=== PATIENT | male | born 1960 | race Caucasian/White ===

== ENCOUNTER 2025-07-06 13:26 | Outpatient (REF) | payer MEDICARE, SELFPAY ==
--- NOTE | ~2025-07-06 | XR_ITS ---
EXAMINATION: XR HAND 3 OR MORE VIEWS RIGHT, XR FOREARM 2 VIEWS RIGHT HISTORY: M79.643 - Pain in unspecified hand COMPARISON: There are no prior studies available for comparison. FINDINGS: Three views of the right hand and AP and lateral views of the right forearm are submitted. Osseous mineralization is normal. There is no fracture or dislocation. The joint spaces are preserved. The soft tissues are unremarkable. XR/XR forearm RT 2V IMPRESSION: Unremarkable examination of the right hand and forearm. Electronically signed by: Werner Perla MD 07/06/2025 02:40 PM EDT
--- NOTE | ~2025-07-06 | XR_ITS ---
EXAMINATION: XR HAND 3 OR MORE VIEWS RIGHT, XR FOREARM 2 VIEWS RIGHT HISTORY: M79.643 - Pain in unspecified hand COMPARISON: There are no prior studies available for comparison. FINDINGS: Three views of the right hand and AP and lateral views of the right forearm are submitted. Osseous mineralization is normal. There is no fracture or dislocation. The joint spaces are preserved. The soft tissues are unremarkable. XR/XR hand RT min 3V IMPRESSION: Unremarkable examination of the right hand and forearm. Electronically signed by: Werner Perla MD 07/06/2025 02:40 PM EDT
== END 2025-07-06 13:27 | disposition home or self-care (01) ==
LOC: HO.XRAY 13:26
PROVIDERS: PCP Nurse Practitioner Primary Care; Referring Provider Nurse Practitioner Primary Care; Visit Provider Hospitalist
DX: K21.9 Gastro-esophageal reflux disease without esophagitis (principal); M79.641 Pain in right hand; R05.3 Chronic cough
CPT/HCPCS: 73090; 73130; 99202

== ENCOUNTER 2025-07-06 13:26 | Outpatient (AMB) | payer MEDICARE, SELFPAY ==
--- NOTE | 2025-07-06 13:27 | A.OFFVIS_ITS ---
Vital Signs 07/06/25 13:30 Height 5 ft 8 in Weight 239 lb 3.225 oz BMI 36.4 BP 150/100 H Blood Pressure Location Lt brachial Position Sitting Pulse 77 Pulse Source Pulse Oximeter Pulse Oximetry (%) 95 Oxygen Delivery Method Room Air Intake Visit Reasons: Cough Insurance Adjustor Required: No Accompanied by: Self / Same As Patient Allergies No Known Allergies Allergy (Verified 07/06/25 13:32) HPI Comments Details: The patient is here for pulmonary evaluation. The patient is a 65-year-old gentleman presenting with chronic cough. She states that he has had chronic cough for many years. The cough is primarily at nighttime. Sometimes he may wake up from a sound sleep with the coughing spell. Sometimes to the point that he can not breathe as it can result in significant spasms. Moderate severity. I can worse at nighttime. The patient also has some snoring. He is eating habits are erratic but he tends to be late. He did try a rescue inhaler in the past although not clear if it helped. The patient does not have any pulmonary function studies to review. He did have a CT scan of the chest done at [place]. We did review the results. There is evidence of chronic bronchitis in addition to some hazy interstitial changes at the bases. 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 He has been exposed to significant amount of inorganic dusts including asbestos and fumes and toxins. 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 On exam he does have some wheezing on exam and does not move great air during the expiratory phase. I did have a sample of Trelegy that he can try for a month to see if this provides some relief. In the meantime we talked about the reflux diet. In addition to the reflux diet we talked about low-sodium diet since his blood pressure today was significantly elevated 150/100. Patient has been struggling with his weight and also with his blood pressure. He is trying to lose weight in order to improve his blood pressure overall. He is really trying to avoid taking blood pressure medications if possible. In addition to this the patient hurt his right arm. He has been having significant pain to the point that he feels significant tenderness moderate to severe he is wearing a brace. He has not had the same looked up. He has been her for about 2 months but in the last few days has gotten worse. I will have him get some x-rays and refer him to orthopedic surgery with hand specialty to be able to further address any issues that he has with his hand that he can not move. [facility] Medical History (Updated 07/08/25 @ 21:47 by Cedrick Tyson MD) Chronic cough Social History (Updated 07/06/25 @ 13:32 by Socorro Curiel CMA) Patient Tobacco Use Status: Never used Tobacco Review of Systems Const Denies fever(s) Eyes Reports no additional complaints ENT Reports nasal discharge Card Denies chest pain Resp Reports chest congestion, Reports cough and Reports wheezing GI Reports dyspepsia Musc Reports as per HPI, Reports myalgias, Reports joint swelling and Reports limited range of motion Skin/Breast Denies rash Neuro Reports no additional complaints Endo Reports no additional complaints Lorenzo/Lymph Reports no additional complaints Aller/Immun Reports wheezing Physical Exam Vital Signs: Last Vital Signs Pulse 77 07/06/25 13:30 BP 150/100 H 07/06/25 13:30 Pulse Ox 95 07/06/25 13:30 Oxygen Delivery Method Room Air 07/06/25 13:30 BMI result Body Mass Index 36.4 Const General: comfortable HEENT Head: Yes normocephalic Neck Neck: Yes supple Chest Chest palpation & inspection: normal inspection of the chest Resp Effort & Inspection: normal respiratory effort and prolonged expiratory phase Auscultation: wheezes Cardio Heart sounds: S1 normal heart sound present and S2 normal heart sound present GI Palpation (GI): Soft to palpation Skin General skin exam: no rashes or lesions noted Extrem General: Yes no clubbing, cyanosis or edema Right upper extremity: elbow/forearm Details: tenderness and swelling and wrist Details: tenderness and swelling Assessment & Plan Assessment & Plan (1) Hand pain: Code(s): M79.643 - Pain in unspecified hand Category: Medical Qualifiers: Laterality: right Qualified Code(s): M79.641 - Pain in right hand (2) Chronic cough: Code(s): R05.3 - Chronic cough Category: Medical Plan PFTs Barium swallow Trial Trelegy inhaler x 1 month Benzonates as needed for cough Hand specialist for the right hand Orders: Orders XR forearm RT 2V 07/06/25 M79.643 - Pain in unspecified hand FL barium swallow 07/06/25 K21.9 - Gastro-esophageal reflux disease without esophagitis, R05.3 - Chronic cough XR hand RT min 3V 07/06/25 M79.643 - Pain in unspecified hand PFT pulmonary function test 07/06/25 R05.3 - Chronic cough Referrals Orthopedics Referral M79.643 - Pain in unspecified hand Medications: New benzonatate 200 mg PO BID PRN 60 caps 0RF cough 30 days Coding Level of Care Code New Pt Level 4 (72314) Diagnoses Pain of right hand M79.641 Laterality: right Chronic cough R05.3 Time Spent (min) 40
[2025-07-06 13:30] VITALS: BP 150/100; PULSE 77; O2SAT 95; BMI 36.4
--- OUTSIDE RECORDS SUMMARY | 2025-07-06 16:06 | XMS_ITS | Clinical Summary ---
Author Organization [facility] Address [address] [place] [address] Care Team Providers Care Cloth Stock Sorter Name Role Phone Unavailable Primary Care Provider Unavailabl e Social History Tobacco Use Types Packs/Day Years Used Date Smoking Tobacco: Never Assessed Sex and Gender Information Value Date Recorded Sex Assigned at Not on file Gender Identity Not on file Sexual Orientation Not on file Plan of Treatment Not on file
--- OUTSIDE RECORDS SUMMARY | 2025-07-06 16:06 | XMS_ITS | Encounter Summary ---
Author Organization [facility] Address [address] [place] [address] Care Team Providers Care Custodian Manager Name Role Phone Janell Loomis NP Primary Care Provider [phone] Encounter Details Date Type Department Care Team (Late st Contact Info) Description 07/04/2025 Results Follow-Up Internal Medicine [facility] [address] [place] [address] Janell Loomis NP [address] [place] [address] Social History Tobacco Use Types Packs/Day Years Used Date Smoking Tobacco: Never Smokeless Tobacco: Never Alcohol Use Standard Drinks/Week Comments Not Currently 0 (1 standard drink = 0.6 oz pur e alcohol) Housing Instability Answer Date Recorde d Are you worried that in the next 2 months you may not have stable housing? No 06/04/2025 Food Access & Nutrition Answer Date Rec orded Do you have access to a vari ety of food including fruits and vegetables? Yes 06/04/2025 Access to Healthcare Answer Date Record ed Within the last 3 months, ho w many times did you visit the emergency department for your medical care? 0 06/04/2025 Health Literacy Answer Date Recorded How often do you need to hav e someone help you when you read instructions, pamphlets, or other written material from your doctor or pharmacy? Never 06/04/2025 Caregiver: How often do you need to have someone help you when you read instructions, pamphlets, or other written material from your doctor or pharmacy? Not on file 06/04/2025 Financial Risk Answer Date Recorded How hard is it for you to pa y for the very basics like food, housing, medical care, and air conditioning / heating? Not very hard 06/04/2025 Transportation Answer Date Recorded Has the lack of transportati on kept you from meetings, work, or from getting things needed for daily living? No Has the lack of transportati on kept you from medical appointments or from getting medications? No 06/04/2025 Social Isolation Answer Date Recorded How often do you feel lonely or isolated from th ose around you? Never 06/04/2025 Food Risk Answer Date Recorded Within the past 12 months we worried whether our food would run out before we got money to buy more. Never true 06/04/2025 Within the past 12 months th e food we bought just didn't last and we didn't have money to get more. Never true 06/04/2025 Dependent Care Answer Date Recorded Do you need help finding or paying for care for your loved ones. For example, child development professor or elderly care for an older adult? No 06/04/2025 Education Answer Date Recorded Do you think completing more education or training, like finishing a GED, going to college, or learning a trade, would be helpful for you? No 06/04/2025 Employment and Income Answer Date Recor ded During the last four weeks, have you been actively looking for work? No 06/04/2025 Living Situation Answer Date Recorded What is your living situation? Unrecognized valu e 06/04/2025 Sex and Gender Information Value Date Recorded Sex Assigned at Not on file Legal Sex Male 8:12 PM EST Gender Identity Not on file Sexual Orientation Not on file documented as of this encounter Plan of Treatment Upcoming Encounters Date Type Department Care Team (Late st Contact Info) Description 08/06/2025 3:45 PM EST Office Visit [facility] [address] [facility] [place] [address] Janell Loomis NP [address] [place] [address] documented as of this encounter Visit Diagnoses Not on filedocumented in this encounter Additional Health Concerns Assessment Noted Time PHQ-9 Depression Total Score: 0 06/04/20 25 3:18 PM EDT A fall risk assessment has been complete d for the patient 06/04/2025 3:17 PM EDT documented as of this encounter Care Teams Custodian Manager Relationship Specialty Start Date End Date Janell Loomis NP [address] [place] [address] PCP - General 12/15/22 documented as of this encounter
--- OUTSIDE RECORDS SUMMARY | 2025-07-06 16:06 | XMS_ITS | Clinical Summary ---
Author Organization [facility] Address [address] [place] [address] Phone Care Team Providers Care Boatbuilder Wood Name Role Phone Jose Clark MD Primary Care Provid er Medications sod sulf-pot chloride-mag sulf (SUTAB) 1.479-0.188- 0.225 gram TabIndications: Special screening for malignant neoplasm of colon Take 1 kit by mouth as directed. Take 12 tablets at 5pm the night before procedure and 12 tablets 6 hours before procedure. PHARMACIST SEE COUPON: MARIBEL [id number] Herminia [address] [facility] [id number] [place] [id number] 24 tablet 4 Active Social History Tobacco Use Types Packs/Day Years Used Date Smoking Tobacco: Never Assessed Education Answer Date Recorded Are you interested in more education? Not on tony e 01/28/2024 Are you concerned about learning? Not on file 01/28/2024 No 01/28/2024 No 01/28/2024 Digital Access Answer Date Recorded No 01/28/2024 No 01/28/2024 Reliable internet access at home? Not on file 01/28/2024 Device with a working camera? Not on file Sex and Gender Information Value Date Recorded Sex Assigned at Not on file Legal Sex Male 3:54 PM EDT Gender Identity Not on file Sexual Orientation Not on file Plan of Treatment Health Maintenance Due Date Last Done Comments Adult Td,Tdap Booster 1960 LIPID PANEL 1958 DEPRESSION SCREENING 1970 SMOKING Hx and SMOKELESS TOB ACCO SCREENING 1971 HEPATITIS C SCREENING 1976 COLOGUARD 2003 FIT TEST 2003 FOBT 2003 SIGMOIDOSCOPY 2003 VIRTUAL COLONOSCOPY 2003 PNEUMOCOCCAL VACCINES (50+ y ears) (1 of 1 - PCV) 2008 ZOSTER VACCINES (1 of 2) 2008 INFLUENZA VACCINE (#1) 2025 COVID-19 VACCINE (1 - 2024-2 6 season) 2025 RSV VACCINE (1 - 1-dose 75+ series) 2033 COLONOSCOPY 03/07/2034 03/07/2024 COLORECTAL CANCER SCREENING 03/07/2034 HEPATITIS A VACCINES Aged Out No long er eligible based on patient's age to complete this topic HIB VACCINES Aged Out No longer eligi ble based on patient's age to complete this topic MENINGOCOCCAL VACCINES (ACWY) Aged Out No longer eligible based on patient's age to complete this topic MENINGOCOCCAL VACCINES (B) Aged Out N o longer eligible based on patient's age to complete this topic Medical Devices Not on file Procedures Procedure Name Priority Date/Time Associated Diagnosis Comments ENDOSCOPY, COLON 03/07/2024 2:39 PM EDT from Last 3 Months or Most Recently Relevant to Health Maintenance Results * ENDOSCOPY, COLON (03/07/2024 2:39 PM EDT) 03/07/2024 2:39 PM EDT Narrative Procedure Note Billie Rogel MD - 03/07/2024 2:39 PM EDT [facility] Patient: Dhaval Knowles : 1960 Account: [id number] Procedure: Colonoscopy Date: 03/07/2024 Attending Physician: Billie Rogel MD Room: Procedure Room 2 Referring MD: Additional Staff: Shoshana Villarreal; CAROLE MERRITT MD Indications: - Screening for colorectal malignant neoplasm Medications: - Propofol IV 150 mg - Lidocaine IV 40 mg - Propofol IV 330 mg - Monitored Anesthesia Care Complications: - No immediate complications. Estimated Blood Loss: - Estimated blood loss: none. Procedure: - Prior to the procedure, a History and Physical was performed, andpatient medications and allergies were reviewed. The patient is competent. Therisks and benefits of the procedure and the sedation options and risks were discussed with the patient. All questions were answered and informed consent was obtained. Patient identification and proposed procedure were verified bythe nurse, the physician and the anesthesiologist in the procedure room.Mental Status Examination: alert and oriented. Prophylactic Antibiotics: Thepatient does not require prophylactic antibiotics. Prior Anticoagulants: Thepatient has taken no anticoagulant or antiplatelet agents. ASA Grade Assessment:II - A patient with mild systemic disease. After reviewing the risks andbenefits, the patient was deemed in satisfactory condition to undergo the procedure. The anesthesia plan was to use monitored anesthesia care (MAC). Immediatelyprior to administration of medications, the patient was re-assessed for adequacyto receive sedatives. The heart rate, respiratory rate, oxygen saturations, blood pressure, adequacy of pulmonary ventilation, and response to care were monitored throughout the procedure. The physical status of the patient was re-assessed after the procedure. - The colonoscope was introduced through the anus and advanced to thececum, identified by appendiceal orifice and ileocecal valve. - The colonoscopy was performed without difficulty. - The patient tolerated the procedure well. - The quality of the bowel preparation was good. The ileocecal valve, appendiceal orifice, and rectum were photographed. Findings: - Internal hemorrhoids were found during retroflexion. - The exam was otherwise without abnormality. Impression: - Internal hemorrhoids. - The examination was otherwise normal. - No specimens collected. Recommendation: - Patient has a contact number available for emergencies. The signs and symptoms of potential delayed complications were discussed with thepatient. Return to normal activities tomorrow. Written discharge instructions were provided to the patient. - Resume previous diet. - Continue present medications. - Repeat colonoscopy in 10 years for screening purposes. Procedure Code(s): - G0121, Colorectal cancer screening; colonoscopy on individual notmeeting criteria for high risk Diagnosis Code(s): - Z12.11, Encounter for screening for malignant neoplasm of colon - K64.8, Other hemorrhoids CPT(R) - 2023 copyright [employer]. All RightsReserved. The CPT codes, CCI edits and ICD codes generated are intended assuggestions and were generated based on input data. These codes are preliminary andupon instructional designer review may be revised to meet current compliance and payer requirements. The provider is responsible for the final determination of appropriatecodes, and modifiers. Scope In Time: 3:05:18 PM Scope Out Time: 3:21:21 PM Scope Withdrawal Time: 00:12:45 Total Procedure Duration: 00:16:03 Dr. Billie Rogel This document has been electronically signed. Note Initiated:03/07/2024 Note Completed:03/07/2024 3:26 PM CC OTHER PROVIDER: PRIMARY CARE: UNLISTED PROVIDER Billie Rogel MD GI PROCEDURE ORDERABLES Final Result from Last 3 Months or Most Recently Relevant to Health Maintenance [place] [address] [place] [address] MEDEX SUPPLEMENT MEDICARE PART A & B BLUE CROSS [employer] SUPPLEMENT BLUE [employer]OSS [employer] SUPPLEMENT BL[employer] SUPPLEMENT BL[employer] SUPPLEMENT BL[employer]OSS [employer]EX SUPPLEMENT BLUE CROSS MEDEX SUPPLEMENT Care Teams Boatbuilder Wood Relationship Specialty Start Date End Date Jose Clark MD [address] [place] [id number] PCP - General Internal Medicine 01/28/24 Additional Source Comments The information contained in this document represents components of the legal health record. It is not the complete legal health record.[facility]
--- OUTSIDE RECORDS SUMMARY | 2025-07-06 16:06 | XMS_ITS | Encounter Summary ---
Author Organization [facility] Address [address] [place] [phone] Phone Care Team Providers Care Field Spec Name Role Phone Jose Clark MD Primary Care Provid er Encounter Details Date Type Department Care Team (Late st Contact Info) Description 03/07/2024 [facility] Generated VIRTUAL DEPARTMENT [address] [place] [address] Unknown, Unknown, Social History Tobacco Use Types Packs/Day Years [...] on file documented as of this encounter Procedure Notes * Billie Rogel MD - 03/07/2024 2:57 PM EDTAssociated Order(s): ENDOSCOPY PROCEDURE [employer] Patient: Dhaval Knowles : 1960 Account: [id number] Procedure: Upper GI endoscopy Date: 03/07/2024 Attending Physician: Billie Rogel MD Room: Procedure Room 2 Referring MD: Additional Staff: Shoshana Villarreal; CAROLE MERRITT MD Indications: - Laryngitis - Chronic cough Medications: - Monitored Anesthesia Care Complications: - No immediate complications. Estimated Blood Loss: - Estimated blood loss was minimal. Procedure: - Prior to the procedure, a History and Physical was performed, and patient medications and allergies were reviewed. The patient is competent. The risks and benefits of the procedure and the sedation options and risks were discussed with the patient. All questions were answered and informed consent was obtained. Patient identification and proposed procedure were verified by the nurse, the physician and the anesthesiologist in the procedure room. Mental Status Examination: alert and oriented. Prophylactic Antibiotics: The patient does not require prophylactic antibiotics. Prior Anticoagulants: The patient has taken no anticoagulant or antiplatelet agents. ASA Grade Assessment: II - A patient with mild systemic disease. After reviewing the risks and benefits, the patient was deemed in satisfactory condition to undergo the procedure. The anesthesia plan was to use monitored anesthesia care (MAC). Immediately prior to administration of medications, the patient was re-assessed for adequacy to receive sedatives. The heart rate, respiratory rate, oxygen saturations, blood pressure, adequacy of pulmonary ventilation, and response to care were monitored throughout the procedure. The physical status of the patient was re-assessed after the procedure. - The gastroscope was introduced through the mouth and advanced to the second part of the duodenum. - The upper GI endoscopy was accomplished without difficulty. - The patient tolerated the procedure well. Findings: - The examined esophagus was normal. - The entire examined stomach was normal. - The examined duodenum was normal. Impression: - Normal esophagus. - Normal stomach. - Normal examined duodenum. - No specimens collected. Recommendation: - Perform a colonoscopy today. Procedure Code(s): - 29501, Esophagogastroduodenoscopy, flexible, transoral; diagnostic, including collection of specimen(s) by brushing or washing, when performed (separate procedure) Diagnosis Code(s): - J04.0, Acute laryngitis - R05.3, Chronic cough CPT(R) - 2022 copyright [employer]. All Rights Reserved. The CPT codes, CCI edits and ICD codes generated are intended as suggestions and were generated based on input data. These codes are preliminary and upon head of biology review may be revised to meet current compliance and payer requirements. The provider is responsible for the final determination of appropriate codes, and modifiers. Scope In Time: 2:58:29 PM Scope Out Time: 3:01:16 PM Scope Withdrawal Time: 00:01:25 Total Procedure Duration: 00:02:47 Dr. Billie Rogel This document has been electronically signed. Note Initiated:03/07/2024 Note Completed:03/07/2024 3:46 PM CC OTHER PROVIDER: PRIMARY CARE: UNLISTED PROVIDER * Billie Rogel MD - 03/07/2024 2:39 PM EDTAssociated Order(s): ENDOSCOPY, COLON [facility] Patient: Dhaval Knowles : 1960 Account: [id number] [...] procedure, a History and Physical was performed, and patient medications and allergies were reviewed. The patient is competent. The risks and benefits of the procedure and the sedation options and risks were discussed with the patient. All questions were answered and informed consent was obtained. Patient identification and proposed procedure were verified by the nurse, the physician and the anesthesiologist in the procedure room. Mental Status Examination: alert and oriented. Prophylactic Antibiotics: The patient does not require prophylactic antibiotics. Prior Anticoagulants: The patient has taken no anticoagulant or antiplatelet agents. ASA Grade Assessment: II - A patient with mild systemic disease. After reviewing the risks and benefits, the patient was deemed in satisfactory condition to undergo the procedure. The anesthesia plan was to use monitored anesthesia care (MAC). Immediately prior to administration of medications, the patient was re-assessed for adequacy to receive sedatives. The heart rate, respiratory rate, oxygen saturations, blood pressure, adequacy of pulmonary ventilation, and response to care were monitored throughout the procedure. The physical status of the patient was re-assessed after the procedure. - The colonoscope was introduced through the anus and advanced to the cecum, identified by appendiceal orifice and ileocecal valve. [...] of potential delayed complications were discussed with the patient. Return to normal activities tomorrow. Written discharge instructions were provided to the patient. - Resume previous diet. - Continue present medications. - Repeat colonoscopy in 10 years for screening purposes. Procedure Code(s): - G0121, Colorectal cancer screening; colonoscopy on individual not meeting criteria for high risk Diagnosis Code(s): - Z12.11, Encounter for screening for malignant neoplasm of colon - K64.8, Other hemorrhoids CPT(R) - 2023 copyright [employer]. All Rights Reserved. The CPT codes, CCI edits and ICD codes generated are intended as suggestions and were generated based on input data. These codes are preliminary and upon head of biology review may be revised to meet current compliance and payer requirements. The provider is responsible for the final determination of appropriate codes, and modifiers. Scope In Time: 3:05:18 PM Scope Out Time: 3:21:21 PM Scope Withdrawal Time: 00:12:45 Total Procedure Duration: 00:16:03 Dr. Billie Rogel This document has been electronically signed. Note Initiated:03/07/2024 Note Completed:03/07/2024 3:26 PM CC OTHER PROVIDER: PRIMARY CARE: UNLISTED PROVIDER documented in this encounter Plan of Treatment Not on file documented as of this encounter Procedures Procedure Name Priority Date/Time Associated Diagnosis Comments ENDOSCOPY PROCEDURE 03/07/2024 2 :57 PM EDT ENDOSCOPY, COLON 03/07/2024 2:39 PM EDT documented in this encounter Results * ENDOSCOPY PROCEDURE (03/07/2024 2:57 PM EDT) 03/07/2024 2:57 PM EDT Narrative Procedure Note Billie Rogel MD - 03/07/2024 2:57 PM EDT [facility] Patient: Dhaval Knowles : 1960 Account: [id number] Procedure: Upper GI endoscopy Date: 03/07/2024 Attending Physician: Billie Rogel MD Room: Procedure Room 2 Referring MD: Additional Staff: Shoshana Villarreal; CAROLE MERRITT MD Indications: - Laryngitis - Chronic cough Medications: - Monitored Anesthesia Care Complications: - No immediate complications. Estimated Blood Loss: - Estimated blood loss was minimal. Procedure: - Prior to the procedure, a [...] was re-assessed after the procedure. - The gastroscope was introduced through the mouth and advanced to the second part of the duodenum. - The upper GI endoscopy was accomplished without difficulty. - The patient tolerated the procedure well. Findings: - The examined esophagus was normal. - The entire examined stomach was normal. - The examined duodenum was normal. Impression: - Normal esophagus. - Normal stomach. - Normal examined duodenum. - No specimens collected. Recommendation: - Perform a colonoscopy today. Procedure Code(s): - 84883, Esophagogastroduodenoscopy, flexible, transoral; diagnostic, including collection of specimen(s) by brushing or washing, when performed (separate procedure) Diagnosis Code(s): - J04.0, Acute laryngitis - R05.3, Chronic cough CPT(R) - 2022 copyright [employer]. All RightsReserved. The CPT codes, CCI edits and ICD codes generated are intended assuggestions and were generated based on input data. These codes are preliminary andupon head of biology review may be revised to meet current compliance and payer requirements. The provider is responsible for the final determination of appropriatecodes, and modifiers. Scope In Time: 2:58:29 PM Scope Out Time: 3:01:16 PM Scope Withdrawal Time: 00:01:25 Total Procedure Duration: 00:02:47 Dr. Billie Rogel This document has been electronically signed. Note Initiated:03/07/2024 Note Completed:03/07/2024 3:46 PM CC OTHER PROVIDER: PRIMARY CARE: UNLISTED PROVIDER Billie Rogel MD GI PROCEDURE ORDERABLES Final Result * ENDOSCOPY, COLON (03/07/2024 2:39 PM EDT) 03/07/2024 2:39 PM EDT Narrative Procedure Note Billie Rogel MD - 03/07/2024 2:39 PM EDT [facility] Patient: Dhaval Knowles : 1960 Account: [id number] [...] K64.8, Other hemorrhoids CPT(R) - 2023 copyright [employer]. All RightsReserved. The CPT codes, CCI edits and ICD codes generated are intended assuggestions and were generated based on input data. These codes are preliminary andupon head of biology review may be revised to meet current [...] Rogel MD GI PROCEDURE ORDERABLES Final Result documented in this encounter Visit Diagnoses Not on filedocumented in this encounter Care Teams Field Spec Relationship Specialty Start Date End Date Jose Clark MD [address] [place] [address] PCP - General Internal Medicine 01/28/24 documented as of this encounter Additional Source Comments The information contained in this document represents components of the legal health record. It is not the complete legal health record.[facility]
--- OUTSIDE RECORDS SUMMARY | 2025-07-06 16:06 | XMS_ITS | Encounter Summary ---
Author Organization [facility] Address [address] [place] [address] Care Team Providers Care Mat Tester Name Role Phone Janell Loomis [employer] Primary Care Provider [phone] Reason for Visit * Reason Onset Date Comments Medication Problem 06/11/2025 Encounter Details Date Type Department Care Team (Late st Contact Info) Description 06/11/2025 Telephone Internal Medicine - [facility] [address] [place], [place] [phone] Janell Loomis NP [address] [place] [address] Social History Tobacco Use Types Packs/Day Years [...] care for your loved ones. For example, director child abuse therapy or elderly care for an older adult? [...] on file documented as of this encounter Ordered Prescriptions Prescription Sig Dispense Quantity Refills Last Filled Start Date End Date molnupiravir 200 mg capsule Take 4 capsules (800 mg total) by mouth every 12 (twelve) hours for 5 days. 40 capsule 06/11/2025 documented in this encounter Progress Notes * Kymberly Salazar MA - 06/13/2025 10:56 AM EDT Pt was advised to take Mucinex and increase water intake. Pt very upset he states he wanted an abx for this, he pays for Insurance And gets no Health care, just has to suffer with his symptoms. Pt was told he has a viral infection, abx not indicated. * Kymberly Salazar MA - 06/12/2025 3:09 PM EDT Tried calling unable to reach mailbox full * Janell Loomis NP - 06/12/2025 2:49 PM EDT Advised Mucinex for chest congestion along with increased water intake which is a natural expectorant. * Jennifer Umaña MA - 06/12/2025 1:18 PM EDT Spoke to pt. He was very upset. I explained to him the Z saleem was for a bacterial infection. He would like to know what he can do for the chest congestion and excessive phlegm. Please advise * Janell Loomis NP - 06/12/2025 12:17 PM EDT There is absolutely no indication for Z-Saleem in the setting of COVID infection which is a viral infection, not a bacterial infection which Z-Saleem is meant to treat. This patient should just implement conservative therapy including fluids rest Tylenol as needed for headache or pain or fever and COVID is self-limited so symptoms will subside on their own. * Baldo Carranza - 06/12/2025 12:08 PM EDT Pt wants a call back about z-saleem, Tel #: [phone]. * Jammie Camp LPN - 06/12/2025 11:07 AM EDT Please advise Thank you * Yun Toledo - 06/12/2025 11:01 AM EDT Pt states that the molnupiravir 200 mg capsule is $1200 out of pocket for him. Pt is asking for a Azithromycin (Zithromax, Z-Saleem). Pls send to [id number] - [place], [place] - [address] [facility] [facility] [[id number]] * Janell Loomis NP - 06/11/2025 4:59 PM EDT Can notify the patient I sent an alternative antiviral medication to treat COVID, I cannot be sure of the cost of this. * Twyla Rosado - 06/11/2025 3:54 PM EDT Medication Problem: What is the name of the medication patient is having a problem with?: ivermectin for covid What is the problem?: this was denied due to the side effects, pt cannot afford the standard rx forcovid because he cannot afford it, he is asking if there is an alternative medication that he can take. Please advise pt new phone number is [phone] Who is calling about the problem? : The patient Is this a NEW medication?: yes How long has the patient been taking this medication? N/a Who prescribed this medication for the patient? N/a Who is patients PCP?: Janell Loomis NP Payor: CHICA Toure [place] / Plan: [employer] / Product Type: *No Product type* / documented in this encounter Plan of Treatment Upcoming Encounters Date Type Department Care Team ([facility] st Contact Info) Description 08/06/2025 3:45 PM EST [facility] [address] [place] [phone] Janell Loomis NP [address] [place] [address] documented as of this encounter Visit Diagnoses Not on filedocumented in this encounter Additional Health Concerns Assessment Noted Time PHQ-9 Depression Total Score: 0 06/04/20 25 3:18 PM EDT A fall risk assessment has been complete d for the patient 06/04/2025 3:17 PM EDT documented as of this encounter Care Teams Mat Tester Relationship Specialty Start Date End Date Janell Loomis NP [address] [place] [address] PCP - General 12/15/22 documented as of this encounter
--- OUTSIDE RECORDS SUMMARY | 2025-07-06 16:06 | XMS_ITS | Clinical Summary ---
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 40 capsule 06/16/20 25 Active Problems Problem Noted Date Diagnosed Date Hepatic steatosis 06/04/2025 HTN (hypertension), benign 06/04/2025 Assessment & Plan (06/04/2025 4:32 PM EDT): BP remains elevated. I did recommend he start medication for this. He defers. He would like to give another shot at reducing sodium intake, increasing exercise and losing weight. I recommended follow-up in 4 weeks, if BP is not at goal then should start medication. We did discuss risks associated with untreated hypertension. Obesity, morbid (CMS/HCC V24, CMS/HCC V28) 06/04 Assessment & Plan (06/04/2025 4:32 PM EDT): Obesity: we discussed the importance of weight loss. We discussed setting realistic weight loss goals. We discussed strategies for motivation. We discussed the importance of meal planning, portion control, eating regular meals and keeping a record of caloric intake. Recommended structured program such as Weight Watchers or using [employer] for assistance with weight loss goals. Regular exercise also encouraged. We discussed weight loss medications and referral to weight management. Class 1 obesity 02/05/2025 Encounters Date Type Department Care Team Description 07/04/2025 Results Follow-Up Internal Medicine [address] [place] [phone] Janell Loomis NP 06/11/2025 Telephone Internal Medicine - [address] [place] [phone] Janell Loomis NP 06/11/2025 Telephone Internal Medicine - [address] [place], [place] [phone] Janell Loomis NP 06/11/2025 Telephone Internal Medicine - [address] [place] [phone] Janell Loomis NP 06/04/2025 3:00 PM EDT Office Visit Internal Medicine - [address] [place] [phone] Janell Loomis NP Adult general medical examination (Primary Dx); HTN (hypertension), benign; Chronic cough; Screening for deficiency anemia; Screening for metabolic disorder; Encounter for lipid screening for cardiovascular disease; Screening for prostate cancer; Screening examination for STD (sexually transmitted disease); Screening for viral disease; Screening exam for skin cancer; Obesity, morbid (CMS/HCC V24, CMS/[facility] V28) from Last 3 Months Surgical History Surgery Date Site/Laterality Comments VASECTOMY VASECTOMY REVERSAL Medical History Medical History Date Comments Chronic cough Old foreign body eye Family History Medical History Relation Name Comments Lymphoma Father Heart attack Maternal Grandfather Stroke Maternal Grandfather Breast cancer Mother Heart attack Paternal Grandfather Stroke Paternal Grandfather Relation Name Status Comments Father Maternal Grandfather Mother Paternal Grandfather Paternal Grandmother Social History Tobacco Use Types Packs/Day Years Used Date Smoking Tobacco: Never Smokeless Tobacco: Never Tobacco Cessation:Counseling Given: Not Answered Alcohol Use Standard Drinks/Week Comments Not Currently [...] care for your loved ones. For example, children's minister or elderly care for an older adult? [...] on file Sexual Orientation Not on file Obstetrics History Last Filed Vital Signs Vital Sign Reading Time Taken Comments Blood Pressure 160/92 06/04/2025 3:29 PM EDT Pulse 95 06/04/2025 3:19 PM EDT Temperature - - Respiratory Rate - - Oxygen Saturation - - Inhaled Oxygen Concentration - - Weight 110 kg (242 lb 6.4 oz) 06/04/2025 3:19 PM EDT Height 170.2 cm (5' 7 ) 02/05/2025 10:55 AM EDT Body Mass Index 37.97 02/05/2025 10:55 AM EDT Plan of Treatment Upcoming Encounters Date Type Department Care Team (Late st Contact Info) Description 08/06/2025 3:45 PM EST Office Visit [facility] - [facility] [address] [place] [phone] Janell Loomis NP [address] [place] [address] Health Maintenance Due Date Last Done Comments DTaP,Tdap,and Td Vaccines (1 - Tdap) 1977 Pneumococcal Vaccine: 50+ Years (1 of 1 - PCV) 2008 Zoster Vaccines (1 of 2) 2008 COVID-19 Vaccine (1 - 2023-2 5 season) 2025 Influenza Vaccine (#1) 2025 Falls Risk Assessment 06/04/2026 06/04/2025 , 06/04/2025 Medicare Annual Wellness Visit 06/04/2026 06/04/2025 Social Influencers of Health Screening 06/04/2026 06/04/2025 Hypertension/CHF/CAD Annual BMP Blood Test 07/04/2026 07/04/2025 Cholesterol Screening (Lipid Panel) 07/04/2030 07/04/2025 RSV Immunization Adult Patients (1 - 1-dose 75+ series) 2033 Colorectal Cancer Screening: Colonoscopy 10/21/2034 10/21/2024 Depression Screening Completed 06/04/2025 Hepatitis C Screening Completed 07/04/2025 HIB Vaccines Aged Out No longer eligi ble based on patient's age to complete this topic HPV Vaccines Aged Out No longer eligi ble based on patient's age to complete this topic Hepatitis A Vaccines Aged Out No long er eligible based on patient's age to complete this topic Hepatitis B Vaccines Aged Out No long er eligible based on patient's age to complete this topic IPV Vaccines Aged Out No longer eligi ble based on patient's age to complete this topic MMR Vaccines Aged Out No longer eligi ble based on patient's age to complete this topic Meningococcal ACWY Vaccine Aged Out N o longer eligible based on patient's age to complete this topic Meningococcal B Vaccine Aged Out No l onger eligible based on patient's age to complete this topic RSV Immunization Patients Under 20 months Aged Out No longer eligible b ased on patient's age to complete this topic Varicella Vaccines Aged Out No longer eligible based on patient's age to complete this topic Procedures Procedure Name Priority Date/Time Associated Diagnosis Comments COMPLETE BLOOD COUNT Routine 07/04/2025 10:30 AM EDT Screening for deficiency anemia COMPREHENSIVE METABOLIC PANEL Routine 07/04/2025 10:30 AM EDT Screening for metabolic disorder LIPID PANEL WITH REFLEX TO DIRECT LDL Routine 07/04/2025 10:30 AM EDT Screening for metabolic disorder Encounter for lipid screening for cardiovascular disease PROSTATE SPECIFIC ANTIGEN SCREEN Routine 07/04/2025 10:30 AM EDT Screening for prostate cancer HEPATITIS C ANTIBODY Routine 07/04/2025 10:30 AM EDT Screening examination for STD (sexually transmitted disease) Screening for viral disease from Last 3 Months Results * Prostate specific antigen screen (07/04/2025 10:30 AM EDT) PSA 1.86 0.00 - 4.00 ng/mL LAB CHEMISTRY METHOD 07/04/2025 3:36 PM EDT [facility] Blood Venous blood specimen / Unknown Venipuncture / Unknown 07/04/2025 10:30 AM EDT 07/04/2025 10:30 AM EDT Narrative [facility] - 07/04/2025 3:36 PM EDT The Siemens Advia Centaur Chemiluminescent Immunoassay is used. Results obtained with different assay methods or kits cannot be used interchangeably. Results cannot be interpreted as absolute evidence of the presence or absence of malignant disease. Janell Loomis LAB BLOOD ORDERABLES Final Resu lt Performing Organization Address [facility]/ZIP Co de Phone Number [facility] [address] [place] [address], [place] [phone] * Hepatitis C antibody (07/04/2025 10:30 AM EDT) [facility] Hepatitis C Antibody Negative Negative LAB CHEMISTRY METHOD 07/04/2025 4:16 PM EDT [facility] Blood Venous blood specimen / Unknown Venipuncture / Unknown 07/04/2025 10:30 AM EDT 07/04/2025 10:30 AM EDT [facility] LAB BLOOD ORDERABLES Final Resu lt Performing Organization Address [facility] Co de Phone Number [facility] [address] [place] [address], [place] [phone] * (ABNORMAL) Lipid panel with reflex to direct LDL (07/04/2025 10:30 AM EDT) [facility] Cholesterol 213(H) 0 - 200 mg/dL LAB CHEMISTRY METHOD 07/04/2025 2:28 PM EDT [facility] Triglycerides 428(H) 0 - 150 mg/dL LAB CHEMISTRY METHOD 07/04/2025 2:28 PM EDT [facility] HDL 42 >=40 mg/dL LAB CHEMISTRY METHOD 07/04/2025 2:28 PM EDT [facility] LDL Calculated 85 0 - 100 mg/dL LAB CHEMISTRY METHOD 07/04/2025 2:28 PM EDT [facility] Comment: Unable to calculate when triglycerides >400 mg/dL. Estimated LDL Calculated using equation: Total cholesterol - HDL cholesterol - (Triglycerides/5) VLDL Cholesterol Ok 85.6 mg/dL LAB CHEMISTRY METHOD 07/04/2025 2:28 PM EDT [facility] Comment:Unable to calculate when triglycerides >400 mg/dL. Non HDL Chol. (LDL+VLDL) 171(H) <145 mg/dL LAB CHEMISTRY METHOD 07/04/2025 2:28 PM EDT [facility] Comment:Unable to calculate when triglycerides >400 mg/dL. Chol/HDL Ratio 5.1(H) 0.0 - 4.4 LAB CHEMISTRY METHOD 07/04/2025 2:28 PM EDT [facility] Blood Venous blood specimen / Unknown Venipuncture / Unknown 07/04/2025 10:30 AM EDT 07/04/2025 10:30 AM EDT Janell Loomis NP LAB BLOOD ORDERABLES Final Resu lt [facility] [address] [place] [address], * Complete blood count (07/04/2025 10:30 AM EDT) WBC 6.3 4.8 - 10.8 K/mcL LAB HEMETOLOGY METHOD 07/04/2025 2:05 PM EDT [facility] RBC 5.20 4.50 - 5.50 M/mcL LAB HEMETOLOGY METHOD 07/04/2025 2:05 PM EDT [facility] Hemoglobin 15.5 13.5 - 17.5 g/dL LAB HEMETOLOGY METHOD 07/04/2025 2:05 PM EDT [facility] Hematocrit 46.5 42.0 - 54.0 % LAB HEMETOLOGY METHOD 07/04/2025 2:05 PM EDT [facility] MCV 89.8 79.0 - 98.0 FL LAB HEMETOLOGY METHOD 07/04/2025 2:05 PM EDT [facility] MCH 29.9 27.0 - 32.0 pcg LAB HEMETOLOGY METHOD 07/04/2025 2:05 PM EDT [facility] MCHC 33.3 32.0 - 37.0 g/dL LAB HEMETOLOGY METHOD 07/04/2025 2:05 PM EDT [facility] RDW 14.0 11.0 - 15.0 % LAB HEMETOLOGY METHOD 07/04/2025 2:05 PM EDT [facility] Platelets 211 130 - 400 K/mcL LAB HEMETOLOGY METHOD 07/04/2025 2:05 PM EDT [facility] MPV 8.9 7.0 - 11.0 FL LAB HEMETOLOGY METHOD 07/04/2025 2:05 PM EDT [facility] NRBC 0.0 <1.0 % LAB HEMETOLOGY METHOD 07/04/2025 2:05 PM EDT [facility] NRBC Absolute 0.00 <0.10 K/mcL LAB HEMETOLOGY METHOD 07/04/2025 2:05 PM EDT [facility] Blood Venous blood specimen / Unknown Venipuncture / Unknown 07/04/2025 10:30 AM EDT 07/04/2025 10:30 AM EDT us Janell oLomis COAL TRIMMER MACHINE OPERATOR LAB BLOOD ORDERABLES Final Resu lt [facility] [address] [place] [address], * (ABNORMAL) Comprehensive metabolic panel (07/04/2025 10:30 AM EDT) Sodium 140 133 - 145 mmol/L LAB CHEMISTRY METHOD 07/04/2025 2:20 PM EDT [facility] Potassium 4.3 3.5 - 5.5 mmol/L LAB CHEMISTRY METHOD 07/04/2025 2:20 PM [facility] Chloride 106 96 - 110 mmol/L LAB CHEMISTRY METHOD 07/04/2025 2:20 PM [facility] CO2 28 21 - 32 mmol/L LAB CHEMISTRY METHOD 07/04/2025 2:20 PM [facility] Anion Gap 6 3 - 11 LAB CHEMISTRY METHOD 07/04/2025 2:20 PM [facility] Glucose 111(H) 70 - 100 mg/dL LAB CHEMISTRY METHOD 07/04/2025 2:20 PM [facility] BUN 15 5 - 25 mg/dL LAB CHEMISTRY METHOD 07/04/2025 2:20 PM [facility] Creatinine 1.09 0.70 - 1.30 mg/dL LAB CHEMISTRY METHOD 07/04/2025 2:20 PM [facility] eGFR 74 >=60 mL/min/1. 73m2 LAB CHEMISTRY METHOD 07/04/2025 2:20 PM [facility] Comment:Calculation based on the Chronic Kidney Disease Epidemiology Collaboration (CKD-EPI) equation refit without adjustment for race. BUN/Creatinine Ratio 13.8 LAB CHEMISTRY METHOD 07/04/2025 2:20 PM [facility] Calcium 9.5 8.5 - 10.5 mg/dL LAB CHEMISTRY METHOD 07/04/2025 2:20 PM [facility] AST (SGOT) 30 10 - 42 unit/L LAB CHEMISTRY METHOD 07/04/2025 2:20 PM [facility] ALT (SGPT) 59 10 - 60 unit/L LAB CHEMISTRY METHOD 07/04/2025 2:20 PM [facility] Alkaline Phosphatase 84 42 - 121 unit/L LAB CHEMISTRY METHOD 07/04/2025 2:20 PM [facility] Total Protein 7.0 6.0 - 8.0 g/dL LAB CHEMISTRY METHOD 07/04/2025 2:20 PM EDT [facility] Albumin 4.1 3.2 - 5.0 g/dL LAB CHEMISTRY METHOD 07/04/2025 2:20 PM EDT [facility] Total Bilirubin 0.8 0.0 - 1.4 mg/dL LAB CHEMISTRY METHOD 07/04/2025 2:20 PM EDT [facility] Blood Venous blood specimen / Unknown Venipuncture / Unknown 07/04/2025 10:30 AM EDT 07/04/2025 10:30 AM EDT Janell Loomis NP LAB BLOOD ORDERABLES Final Resu lt [facility] [address] [place] [address], from Last 3 Months Insurance [facility] MEDICARE Care Teams Fixing Machine Operator Relationship Specialty Start Date End Date Janell Loomis NP NPI: [id number] [place] [id number] PCP - General 12/15/22
== END 2025-07-06 14:03 | disposition home or self-care (01) ==
PROVIDERS: PCP Nurse Practitioner Primary Care; Referring Provider Nurse Practitioner Primary Care; Visit Provider Hospitalist
DX: M79.641 Pain in right hand (principal); R05.3 Chronic cough
CPT/HCPCS: 99204

== ENCOUNTER → 2025-07-06 14:17 | Outpatient (BNV) | payer MEDICARE, SELFPAY | PROVIDERS: PCP Nurse Practitioner Primary Care; Referring Provider Nurse Practitioner Primary Care; Visit Provider Radiology Diagnostic Radiology | DX: M79.641 Pain in right hand (principal); M79.631 Pain in right forearm | CPT/HCPCS: 73090; 73130 ==